=== PATIENT | female | born 1965 | race Caucasian/White ===

== ENCOUNTER 2017-08-27 20:24 | Emergency (ER) | payer MEDICARE, OTHER ==
[2017-08-27 20:49] LABS: #Basophils 0.1 thou/uL (0.0-0.2); #Eosinphils 0.4 thou/uL (0.0-0.7); #Lymphocytes 2.4 thou/uL (1.20-3.40); #Monocytes 0.9 thou/uL (0.11-0.59); #Neutrophils 6.2 thou/uL (1.40-6.50); %Basophils 0.8 % (0.0-1.0); %Eosinophils 4.3 % (0.0-10.0); %Lymphocytes 23.7 % (21.0-51.0); %Monocytes 9.1 % (0.0-10.0); %Neutrophils 62.2 % (42.0-75.0); Hemoglobin 14.1 g/dL (12.0-16.0); Mean Corpuscular HGB CONC 34.6 g/dL (32.0-36.0); Mean Corpuscular Hemoglobin 31.4 pg (27.0-31.0); Mean Corpuscular Volume 90.8 fl (81.0-99.0); Mean Platelet Volume 9.2 fL (7.4-10.4); Platelet Count 132 thou/uL (130-400); RBC Distribution Width 12.3 % (11.5-14.5)
[2017-08-27 21:09] LABS: ALT (SGPT) 23 U/L (8-55); AST (SGOT) 28 U/L (5-34); Albumin 4.4 g/dL (3.5-5.0); Alkaline Phosphatase 97 U/L (40-150); Anion Gap 16 mmol/L (10-20); BUN (Urea Nitrogen) 16 mg/dL (9.8-20.1); Bilirubin, Total 0.3 mg/dL (0.2-1.2); Calc. Creatinine Clearance 0 mL/min (70-130); Carbon Dioxide 23 mmol/L (22-29); Chloride 104 mmol/L (98-107); Estimated GFR-MDRD 36; Globulin 3.2 g/dL (2.4-3.5); Glucose 94 mg/dL (70-105); Potassium 4.3 mmol/L (3.5-5.1); Protein, Total 7.6 g/dL (6.0-8.3); Sodium 139 mmol/L (136-145)
--- NOTE | 2017-08-27 21:33 | ULT ---
LEFT LOWER EXTREMITY VENOUS ULTRASOUND: 08/27/17 COMPARISON: None. HISTORY: Left lower extremity edema for three to four days. Patient had a DVT 20 years ago. TECHNIQUE: Multiplanar dykes scale and color doppler images were obtained in a left lower extremity venous ultra sound. Spectral analysis of the doppler waveforms were performed. FINDINGS: There is partial flow in the mid portion of the superficial femoral vein. No flow is seen within the distal superficial femoral vein down to the posterior tibial vein. Only partial flow is seen in the a nterior tibial vein. The common femoral vein and proximal aspect of the superficial femoral vein are unremarkable. IMPRESSION: DVT seen within the superficial femoral vein, popliteal vein, and extending down into the posterior t ibial vein as above. POS: [facility]
[2017-08-27] MEDS ORDERED: Enoxaparin Sodium 80 MG/0.8 ML SYRINGE ONE (22:59)
== END 2017-08-27 23:18 | disposition home or self-care (01) ==
LOC: ERS 20:24
DX: I82.402 Acute embolism and thrombosis of unspecified deep veins of left lower extremity (principal); N17.9 Acute kidney failure, unspecified; I10 Essential (primary) hypertension; F32.9 Major depressive disorder, single episode, unspecified
CPT/HCPCS: 36415; 80053; 85025; 85379; 96372; J1650